=== PATIENT | male | born 1960 | race Caucasian/White ===

== ENCOUNTER 2022-05-07 10:11 | Inpatient (IN) | payer OTHER ==
[~2022-05-07] VITALS: Ht 185.4 cm; Wt 83.9 kg
--- NOTE | 2022-05-07 10:11 | NUR ---
TO ER BED 11. BIB RA [address] AND [employer], PT WAS TAKEN INTO CUSTODY 3DAYS AGO AND STARTED TO HAVE ALCOHOL IWTHDRAWAL SYMPTOMS, PT STATED HE HAS 10-15 BEERS A DAY. 2MG OF ATIVAN IM GIVEN PRIOR TO ARRIVAL, ATTACHED TO MONITOR, HEART RATE ELEVATED, MD CRAIN. AWAITING MD GONSALES.
--- NOTE | 2022-05-07 10:55 | NUR ---
IV LINE ESTABLISHED ON LAC #20, BLOOD DRAWN AND SENT TO LAB
[2022-05-07] MEDS ORDERED: LORAZEPAM INJ 2 MG/ML VIAL ONE ×2 (10:57→13:02)
[2022-05-07 10:58] LABS: BASOPHILS % (AUTO) 0.5 % (0.0-2.0); HEMATOCRIT 46 % (39-51); HEMOGLOBIN 15.6 g/dL (13.5-17.5); LYMPHOCYTES # (AUTO) 0.2 K/uL (0.8-4.8); LYMPHOCYTES % (AUTO) 3.6 % (20.0-44.0); MEAN CORPUSCULAR HGB CONC 34 g/dl (31.0-36.0); MEAN CORPUSCULAR VOLUME 104 fL (80-96); MONOCYTES # (AUTO) 1.1 K/uL (0.1-1.30); NEUTROPHILS % (AUTO) 78.9 % (43.0-81.0); PLATELET COUNT (AUTO) 63 K/uL (150-450); RED BLOOD CELL COUNT(AUTO) 4.39 MIL/uL (4.5-6.0); WHITE BLOOD COUNT (AUTO) 6.3 K/uL (4.3-11.0)
[2022-05-07] MEDS ORDERED: IV NS 0.9% 1,000 ML BAG IV ONE (11:00)
[2022-05-07] MEDS ORDERED: LORAZEPAM INJ 2 MG/ML VIAL IVP ONE (11:00)
[2022-05-07 11:13] LABS: CALCIUM, SERUM 8.8 mg/dL (8.5-10.1); CREATININE 0.9 mg/dL (0.6-1.3); POTASSIUM 3.9 mmol/L (3.5-5.1)
[2022-05-07 11:20] LABS: ALBUMIN 3.7 g/dL (3.4-5.0); BILIRUBIN,DIRECT 0.4 mg/dL (0.0-0.2); BILIRUBIN,TOTAL 1.1 mg/dL (0.2-1.0); TOTAL PROTEIN, SERUM 7.6 g/dL (6.4-8.2)
--- NOTE | 2022-05-07 12:43 | NUR ---
COVID TEST COLLECTED AND SENT
[2022-05-07] MEDS ORDERED: LORAZEPAM INJ 2 MG/ML VIAL IV ONE (13:00)
[2022-05-07] MEDS ORDERED: MAGNESIUM HYDROXIDE 30 ML UDC PO PRN (14:00)
[2022-05-07] MEDS ORDERED: MAG HYDROX/AL HYDROX/SIMETH 30 ML UDC PO PRN (14:00)
[2022-05-07] MEDS ORDERED: ACETAMINOPHEN 325 MG TABLET PO PRN (14:00)
[2022-05-07] MEDS ORDERED: TEMAZEPAM 15 MG CAPSULE PO PRN (14:00)
[2022-05-07] MEDS ORDERED: ONDANSETRON HCL/PF 4 MG/2 ML VIAL IVP PRN (14:00)
[2022-05-07] MEDS ORDERED: Z GUARD REMEDY 4 OZ OINT TP PRN (14:00)
--- NOTE | 2022-05-07 14:08 | NUR ---
GOING 317 TELE. ADMITTING AWARE
--- NOTE | 2022-05-07 14:40 | NUR ---
PT REPORT GIVEN TO MUNIR ZAMORA/MAGDA ZAMORA.
--- NOTE | 2022-05-07 15:20 | NUR ---
PT TRANSFERRED TO 317-1 VIA [facility] ACLS PROTOCOL. WARM HANDOFF GIVEN TO NOAH AMARAL.
--- NOTE | 2022-05-07 15:30 | NUR ---
RN OPENING PT ADMITTED TO UNIT WITH SEVERE TREMORS DUE TO ALCOHOL WITHDRAWAL. ALERT AND ORIENTED X3. PT STATES HE EXPERIENCES SEIZURES AT LEAST ONCE A WEEK, LASTING FOR 4 MONTHS. NO SOB NOTED. IV 20G IN THE LEFT AC. VITAL SIGNS TAKEN, BP 174/103 AND PULSE 140. SKIN INTACT. PT STATES HE IS EXPERIENCING PAIN IN HIS BACK. BED IN LOWEST POSITION WITH SIDE RAILS X2. CALL LIGHT WITHIN REACH. WILL CONTINUE TO MONITOR.
[2022-05-07 16:04] VITALS: BP 174/103
[2022-05-07 16:26] LABS: BAND % (MANUAL) 1 % (0.0-5.0); LYMPHOCYTES % (MANUAL) 13 % (16-48); MONOCYTES % (MANUAL) 8 % (0-11.0); NEUTROPHILS % (MANUAL) 78 (42-76)
[2022-05-07] MEDS: IV NS 0.9% 1,000 ML IV PRN (16:45)
[2022-05-07] MEDS: LORAZEPAM INJ 2 MG/ML VIAL IV PRN (17:11)
--- NOTE | 2022-05-07 17:54 | NUR ---
RN NOTE PT GIVEN ATIVAN, TREMORS ARE MORE UNDER CONTROL. PT STATES HE FEELS LESS ANXIOUS. IV INFUSING AT 75ML/HR OF NS. PT RESTING COMFORTABLY.
--- NOTE | 2022-05-07 18:41 | NUR ---
RN CLOSING NOTE 217 PATIENT ALERT AND ORIENTED X3. NO SOB NOTED. IV 20 G IN LEFT AC INFUSING 75ML/HR OF NORMAL SALINE. PATIENT IS ON TELE READING SINUS TACHY AT 140 BPM. TREMORS HAVE DECREASED AND PATIENT SEEMS LESS ANXIOUS. PATIENT STATES HE FEELS VERY WEAK. RESTING COMFORTABLY IN BED. PATIENT IS UNDER CUSTODY OF TWO [employer] OFFICERS WHO ARE SITTING OUTSIDE THE DOOR. CALL LIGHT IS WITHIN REACH, BED IN LOWEST POSITION, IN SEMI WATTS. SIDE RAILS UP X2. WILL ENDORSE TO GOLF CADDY NURSE FOR CONTINUITY OF CARE.
--- NOTE | 2022-05-07 19:30 | NUR ---
MS RN OPENING NOTE RECEIVED PT AWAKE IN BED. 2 [employer] OFFICERS AT BEDSIDE. A/O X4 AND ABLE TO MAKE NEEDS KNOWN. PT STABLE ON ROOM AIR. NO SOB OR S/S OF RESPIRATORY DISTRESS. BREATHING EVEN AND UNLABORED. IV ACCESS LAC 20 GAUGE RUNNING NS @ 75 ML/HR. SAFETY PRECAUTIONS IN PLACE. BED IN LOWEST LOCKED POSITION, HOB ELEVATED, SIDE RAILS UP X3, AND CALL LIGHT AND TABLE WITHIN REACH. ALL NEEDS MET AT THIS TIME.
[2022-05-07 20:00] VITALS: BP 135/92
[2022-05-08] MEDS: LORAZEPAM INJ 2 MG/ML VIAL IV PRN ×4 (00:39→20:00)
--- NOTE | 2022-05-08 00:40 | NUR ---
RN NOTE PT NOTED WITH TREMORS AND REQUESTING ATIVAN. ADMINISTERED ATIVAN 1 MG FOR ANXIETY ORDERED. ALL NEEDS MET AT THIS TIME.
--- NOTE | 2022-05-08 06:32 | NUR ---
RN NOTE PT NOTED WITH TREMORS AND REQUESTING ATIVAN. ADMINISTERED ATIVAN 1 MG FOR ANXIETY ORDERED. ALL NEEDS MET AT THIS TIME.
[2022-05-08 06:44] LABS: BASOPHILS % (AUTO) 0.2 % (0.0-2.0); EOSINOPHILS % (AUTO) 0.3 % (0.0-6.0); HEMATOCRIT 43 % (39-51); HEMOGLOBIN 15.1 g/dL (13.5-17.5); LYMPHOCYTES # (AUTO) 0.4 K/uL (0.8-4.8); LYMPHOCYTES % (AUTO) 6.7 % (20.0-44.0); MEAN CORPUSCULAR HGB CONC 35 g/dl (31.0-36.0); MEAN CORPUSCULAR VOLUME 104 fL (80-96); MONOCYTES # (AUTO) 0.9 K/uL (0.1-1.30); MONOCYTES % (AUTO) 14.7 % (2.0-12.0); NEUTROPHILS # (AUTO) 4.6 K/uL (1.8-8.9); NEUTROPHILS % (AUTO) 78.1 % (43.0-81.0); RED BLOOD CELL COUNT(AUTO) 4.18 MIL/uL (4.5-6.0); WHITE BLOOD COUNT (AUTO) 5.8 K/uL (4.3-11.0)
[2022-05-08 06:49] LABS: PLATELET COUNT (AUTO) 48 K/uL (150-450)
--- NOTE | 2022-05-08 06:55 | NUR ---
MS RN CLOSING NOTE PT AWAKE IN BED. 2 [employer] OFFICERS AT BEDSIDE. A/O X4 AND ABLE TO MAKE NEEDS KNOWN. PT STABLE ON ROOM AIR. NO SOB OR S/S OF RESPIRATORY DISTRESS. BREATHING EVEN AND UNLABORED. IV ACCESS LAC 20 GAUGE RUNNING NS @ 75 ML/HR. ALL DUE MEDS GIVEN ORDERED. SAFETY PRECAUTIONS IN PLACE AT ALL TIMES. BED IN LOWEST LOCKED POSITION, HOB ELEVATED, SIDE RAILS UP X3, AND CALL LIGHT AND TABLE WITHIN REACH. ALL NEEDS MET AT THIS TIME AND WILL ENDORSE TO ONCOMING NURSE FOR IVETTE.
[2022-05-08 07:17] LABS: THYROID STIMULATING HORMONE 1.896 uIU/mL (0.358-3.74)
[2022-05-08 07:20] LABS: CALCIUM, SERUM 8.4 mg/dL (8.5-10.1); CREATININE 0.7 mg/dL (0.6-1.3); MAGNESIUM 1.7 mg/dL (1.8-2.4); PHOSPHORUS 2.3 mg/dL (2.5-4.9); POTASSIUM 3.2 mmol/L (3.5-5.1)
--- NOTE | 2022-05-08 07:30 | NUR ---
MS RN OPENING NOTE RECEIVED PT AWAKE ON BED WITH 2 [employer] OFFICERS AT BEDSIDE. A/O X4 AND ABLE TO MAKE NEEDS KNOWN. ON ROOM AIR TOLERATING WELL. NO SOB OR S/S OF RESPIRATORY DISTRESS. BREATHING EVEN AND UNLABORED. WITH IV ACCESS AT LAC G20 WITH NS @ 75 ML/HR. SAFETY PRECAUTIONS IN PLACE. BED IN LOWEST LOCKED POSITION, HOB ELEVATED, SIDE RAILS UP X3, AND CALL LIGHT AND TABLE WITHIN REACH. WILL CONTINUE TO MONITOR.
[2022-05-08 08:00] VITALS: BP 135/90
[2022-05-08 08:10] LABS: EOSINOPHILS % (MANUAL) 1 % (0-4); LYMPHOCYTES % (MANUAL) 8 % (16-48); MONOCYTES % (MANUAL) 11 % (0-11.0); NEUTROPHILS % (MANUAL) 80 (42-76)
[2022-05-08] MEDS: IV NS 0.9% 1,000 ML IV PRN (08:10)
[2022-05-08] MEDS: THIAMINE HCL 100 MG TABLET PO SCH (08:10)
[2022-05-08] MEDS: PANTOPRAZOLE 40 MG TABLET.DR PO SCH (08:10)
[2022-05-08] MEDS ORDERED: POTASSIUM CHLORIDE 20 MEQ TAB.PRT.SR PO ONE (10:00)
[2022-05-08] MEDS ORDERED: MAGNESIUM OXIDE 400 MG TABLET PO ONE (10:00)
[2022-05-08] MEDS: POTASSIUM PHOSPHATE MM 7.5 MMOL in IV NS 0.9% 100 ML IV SCH ×2 (10:11→13:21)
--- NOTE | 2022-05-08 13:19 | NUR ---
OFFICER NOTIFIED ME THAT PATIENT IS RELEASED FROM CUSTODY.
--- NOTE | 2022-05-08 15:12 | NUR ---
RN NOTE GIVEN ATIVAN IV FOR PRESENCE OF TREMORS AND ANXIETY. WILL MONITOR.
[2022-05-08 16:00] VITALS: BP 146/101
--- NOTE | 2022-05-08 18:16 | NUR ---
MS RN CLOSING NOTES PT AWAKE ON BED, WATCHING TV, A/O X4 AND ABLE TO MAKE NEEDS KNOWN. ON ROOM AIR TOLERATING WELL. NO SOB OR S/S OF RESPIRATORY DISTRESS. BREATHING EVEN AND UNLABORED. WITH IV ACCESS AT RIGHT FOREARM G22 WITH NS @ 75 ML/HR. DUE MEDS GIVEN. SAFETY PRECAUTIONS IN PLACE. BED IN LOWEST LOCKED POSITION, HOB ELEVATED, SIDE RAILS UP X3, AND CALL LIGHT AND TABLE WITHIN REACH. WILL ENDORSE TO NEXT SHIFT FOR IVETTE.
--- NOTE | 2022-05-08 19:42 | NUR ---
RN OPENING NOTES; PT RECEIVED IN BED AAOX4,MLEYSSA WELL ON RM AIR,NO SIGN SOB/DISTRESS NOTED.NO COMPLAINE OF PAIN/DISCOMFORT AT THIS TIME,IV SITE RFA 22G PATENT AND INTACT.SAFETY MEASURE INPLACE ,CALL LIGHT WITHIN REACH.
[2022-05-08 20:00] VITALS: BP 136/92
[2022-05-09] MEDS: IV NS 0.9% 1,000 ML IV PRN ×2 (04:09→18:40)
--- NOTE | 2022-05-09 06:16 | NUR ---
RN CLOSING NOTES;309 PT IN BED AAOX3,MELYSSA WELL ON RM AIR,NO SIGN SOB/DISTRESS NOTED.NO COMPLAINE OF PAIN/DISCOMFORT DURING SHIFT,DUE MEDS GIVEN ORDERED,ALL NEEDS ATTENDED RUNNING NS@75ML/HR MELYSSA WELL,IV SITE RFA 22G PATENT AND INTACT.SAFETY MEASURE INPLACE ,CALL LIGHT WITHIN REACH.WILL ENDORSED TO NEXT SHIFT.
--- NOTE | 2022-05-09 07:27 | NUR ---
MS RN OPENING NOTE RECEIVED PT AWAKE IN BED. PT IS A/O X4, ABLE TO MAKE NEEDS KNOWN. PT ON RA, TOLERATING WELL. NO SOB NOTED AT THIS TIME. NOT IN ANY SIGN OF RESPIRATORY DISTRESS. IV ACCESS IN RFA G #22 INTACT AND PATENT WITH NS INFUSING AT 75ML/HR. SAFETY MEASURES IN PLACE: BED IN LOWEST AND LOCKED POSITION, BED ALARM ON, SIDE RAILS UPX2, AND CALL LIGHT WITHIN REACH. WILL CONTINUE TO MONITOR PT.
[2022-05-09 08:00] VITALS: BP 146/98
[2022-05-09] MEDS: PANTOPRAZOLE 40 MG TABLET.DR PO SCH (08:15)
[2022-05-09] MEDS: THIAMINE HCL 100 MG TABLET PO SCH (08:15)
[2022-05-09 08:45] LABS: BASOPHILS % (AUTO) 0.5 % (0.0-2.0); EOSINOPHILS % (AUTO) 0.3 % (0.0-6.0); HEMATOCRIT 42 % (39-51); HEMOGLOBIN 14.5 g/dL (13.5-17.5); LYMPHOCYTES # (AUTO) 0.6 K/uL (0.8-4.8); LYMPHOCYTES % (AUTO) 9.1 % (20.0-44.0); MEAN CORPUSCULAR HGB CONC 34 g/dl (31.0-36.0); MEAN CORPUSCULAR VOLUME 104 fL (80-96); MONOCYTES # (AUTO) 0.8 K/uL (0.1-1.30); MONOCYTES % (AUTO) 13.1 % (2.0-12.0); NEUTROPHILS # (AUTO) 4.9 K/uL (1.8-8.9); RED BLOOD CELL COUNT(AUTO) 4.05 MIL/uL (4.5-6.0); WHITE BLOOD COUNT (AUTO) 6.3 K/uL (4.3-11.0)
[2022-05-09 08:51] LABS: PLATELET COUNT (AUTO) 50 K/uL (150-450)
--- NOTE | 2022-05-09 09:50 | NUR ---
RN NOTE FINGER PRINTING WAS DONE BY DEPUTY COLLIER. DISCHARGE INSTRUCTION WAS GIVEN TO US AND MADE FOAM DISPENSER AWARE.
[2022-05-09 10:06] LABS: CALCIUM, SERUM 8.2 mg/dL (8.5-10.1); CREATININE 0.7 mg/dL (0.6-1.3); MAGNESIUM 1.6 mg/dL (1.8-2.4); POTASSIUM 3.2 mmol/L (3.5-5.1)
[2022-05-09] MEDS: LORAZEPAM INJ 2 MG/ML VIAL IV PRN (10:14)
--- NOTE | 2022-05-09 10:14 | NUR ---
RN NOTE PT C/O OF FEELING ANXIOUS AND HAND TREMORS. ATIVAN 1MG IV GIVEN ORDERED PRN Q4HR. PARTIAL DOSE WASTED AND WAS WITNESSED BY NOAH VELA.
[2022-05-09] MEDS: POTASSIUM CHLORIDE 20 MEQ TAB.PRT.SR PO SCH ×2 (14:06→15:12)
[2022-05-09 16:00] VITALS: BP 143/95
[2022-05-09] MEDS ORDERED: K PHOS NEUTRAL 250 MG TABLET PO ONE (16:00)
--- NOTE | 2022-05-09 19:00 | NUR ---
MS RN CLOSING NOTE PT AWAKE IN BED. PT IS A/O X4, ABLE TO MAKE NEEDS KNOWN. PT ON RA, TOLERATING WELL. NO SOB NOTED AT THIS TIME. NOT IN ANY SIGN OF RESPIRATORY DISTRESS. IV ACCESS IN RFA G #22 INTACT AND PATENT WITH NS INFUSING AT 75ML/HR. ALL NEEDS ATTENDED. KEPT CLEAN AND COMFORTABLE. SAFETY MEASURES IN PLACE: BED IN LOWEST AND LOCKED POSITION, BED ALARM ON, SIDE RAILS UPX2, AND CALL LIGHT WITHIN REACH. WILL ENDORSE TO [employer] OFFICER NURSE FOR IVETTE.
--- NOTE | 2022-05-09 19:22 | NUR ---
RN OPENING NOTE PATIENT SITTING UP AT THE EDGE OF THE BED, A/O X4 AT THIS TIME, ABLE TO MAKE NEEDS KNOWN. PATIENT ON RA, TOLERATING WELL WITH NO SOB. PATIENT ABLE TO WALK WITH A WALKER. RFA 22 G PATENT AND INTACT WITH NS AT 75 ML/HR. NO TREMORS NOTED AT THIS TIME. NO PAIN AT THIS TIME, NO APPARENT DISTRESS. SAFETY MEASURES IN PLACE: BED LOCKED AND IN LOWEST POSITION, CALL LIGHT WITHIN REACH, SIDE RAILS UP. WILL MONITOR PATIENT CLOSELY.
[2022-05-09 19:35] VITALS: BP 101/59
[2022-05-09 20:00] VITALS: BP 126/101
--- NOTE | 2022-05-09 23:30 | NUR ---
RN NOTE PATIENT REQUESTS FOR IVF TO BE PAUSED AT THIS TIME SINCE HE'S GOING TO THE RESTROOM OFTEN. COMPLAINING OF DIARRHEA D/T SOMETHING HE ATE AND DRANK (MILK AND BURGER).
[2022-05-10 06:44] LABS: BASOPHILS % (AUTO) 0.6 % (0.0-2.0); EOSINOPHILS % (AUTO) 1.7 % (0.0-6.0); HEMATOCRIT 39 % (39-51); HEMOGLOBIN 13.5 g/dL (13.5-17.5); LYMPHOCYTES # (AUTO) 0.6 K/uL (0.8-4.8); LYMPHOCYTES % (AUTO) 12.3 % (20.0-44.0); MEAN CORPUSCULAR HGB CONC 35 g/dl (31.0-36.0); MEAN CORPUSCULAR VOLUME 104 fL (80-96); MONOCYTES # (AUTO) 0.7 K/uL (0.1-1.30); NEUTROPHILS # (AUTO) 3.4 K/uL (1.8-8.9); NEUTROPHILS % (AUTO) 70.4 % (43.0-81.0); PLATELET COUNT (AUTO) 53 K/uL (150-450); RED BLOOD CELL COUNT(AUTO) 3.75 MIL/uL (4.5-6.0); WHITE BLOOD COUNT (AUTO) 4.9 K/uL (4.3-11.0)
[2022-05-10] MEDS: LORAZEPAM INJ 2 MG/ML VIAL IV PRN (06:53)
--- NOTE | 2022-05-10 06:59 | NUR ---
RN CLOSING NOTE PATIENT SITTING ON THE BED, A/O X 4 AT THIS TIME, ABLE TO MAKE NEEDS KNOWN. PATIENT ON RA, TOLERATING WELL WITH NO SOB. PATIENT GIVEN ATIVAN FOR HIS TREMORS AT 0653. RFA 22 G PATENT AND INTACT WITH NS AT 75 ML/HR. NO PAIN AT THIS TIME, NO APPARENT DISTRESS. PATIENT'S DIARRHEA RESOLVED. SAFETY MEASURES IN PLACE: BED LOCKED AND IN LOWEST POSITION, CALL LIGHT WITHIN REACH, SIDE RAILS UP. ALL NEEDS MET AND ATTENDED. ALL ORDERS CARRIED OUT. WILL ENDORSE TO DAY SHIFT NURSE FOR IVETTE.
[2022-05-10 07:00] LABS: CALCIUM, SERUM 8.2 mg/dL (8.5-10.1); CREATININE 0.7 mg/dL (0.6-1.3); MAGNESIUM 1.6 mg/dL (1.8-2.4); PHOSPHORUS 3.8 mg/dL (2.5-4.9); POTASSIUM 3.2 mmol/L (3.5-5.1)
[2022-05-10] MEDS ORDERED: MAGNESIUM OXIDE 400 MG TABLET PO ONE (08:00)
[2022-05-10] MEDS ORDERED: POTASSIUM CHLORIDE 20 MEQ TAB.PRT.SR PO ONE (08:00)
[2022-05-10] MEDS: THIAMINE HCL 100 MG TABLET PO SCH (08:46)
[2022-05-10] MEDS: PANTOPRAZOLE 40 MG TABLET.DR PO SCH (08:46)
[2022-05-10 09:02] LABS: BAND % (MANUAL) 1 % (0.0-5.0); BASOPHILS % (MANUAL) 2 % (0.0-2.0); EOSINOPHILS % (MANUAL) 1 % (0-4); LYMPHOCYTES % (MANUAL) 15 % (16-48); MONOCYTES % (MANUAL) 7 % (0-11.0); NEUTROPHILS % (MANUAL) 74 (42-76)
[2022-05-10] MEDS ORDERED: FOLI0.4T6 PO (09:10)
[2022-05-10] MEDS ORDERED: THIA100T70 PO (09:10)
--- NOTE | 2022-05-10 12:45 | NUR ---
REBEAMER CLOSING NOTE PATIENT RECEIVED AWAKE AND A/O X4. NO ACUTE DISTRESS OR C/O MEADE OBSERVED OR REPORTED. OBSERVED AMBULATING ON UNIT WITH ASSIST OF FWW AND ACCOMPANIED BY PT. TOLERATED ALL MEDICATIONS AND MEALS WELL. PATIENT DISCHARGED FROM FACILITY & BACK TO [facility] @ 1245 [facility]IA [employer]. TAKEN OFF FLOOR IN WHEELCHAIR. INVENTORY LIST SIGNED BY PATIENT AND ALL BELONGINGS GIVEN TO [employer] OFFICERS. CHARGE NURSE AWARE.
== END 2022-05-10 13:00 | DRG 897 ==
LOC: ER 10:14 → TELE 14:26 → MED 21:13
PROVIDERS: ADMIT Nurse Practitioner Acute Care; ATTEND Internal Medicine
DX: F10.239 Alcohol dependence with withdrawal, unspecified (principal); E87.1 Hypo-osmolality and hyponatremia; Y90.2 Blood alcohol level of 40-59 mg/100 ml; E86.1 Hypovolemia; Z79.899 Other long term (current) drug therapy; Z86.69 Personal history of other diseases of the nervous system and sense organs; R74.01 Elevation of levels of liver transaminase levels; Z99.89 Dependence on other enabling machines and devices; F32.9 Major depressive disorder, single episode, unspecified
CPT/HCPCS: 36415; 80048-TC; 80076-TC; 82962-TC; 83735-TC; 84100-TC; 84443-TC; 85025-TC; 87081-TC; 97116-TC; 97530-TC; C9803; G0378; G0480; J2060; J3490; J7030; J7050

== ENCOUNTER 2024-07-19 16:34 | Emergency (ER) | payer OTHER ==
[~2024-07-19] VITALS: Ht 185.4 cm; Wt 84.8 kg
[~2024-07-19 16:34] MED LIST: FOLI0.4T6 PO; THIA100T70 PO
[2024-07-19] MEDS ORDERED: ACETAMINOPHEN ES 500 MG TABLET ONE (16:54)
[2024-07-19] MEDS ORDERED: TDAP [DIPH/PERTUSSIS/TET] 0.5 ML VIAL IM ONE (16:55)
[2024-07-19] MEDS: ACETAMINOPHEN 325 MG TABLET PO ONE (17:01)
[2024-07-19] MEDS: TDAP [DIPH/PERTUSSIS/TET] 0.5 ML VIAL IM ONE (17:02)
[2024-07-19] MEDS ORDERED: ACET-2030 PO (18:45)
[2024-07-19] MEDS ORDERED: AMOX-430 PO (18:45)
[2024-07-19 22:23] VITALS: BP 126/88; TEMP 98.9; O2SAT 98
== END 2024-07-19 20:30 | disposition home or self-care (01) ==
LOC: ER 17:06
DX: S02.2XXA Fracture of nasal bones, initial encounter for closed fracture (principal); S00.03XA Contusion of scalp, initial encounter; F10.129 Alcohol abuse with intoxication, unspecified; Z86.69 Personal history of other diseases of the nervous system and sense organs; Z60.2 Problems related to living alone; Y04.0XXA Assault by unarmed brawl or fight, initial encounter; Y93.89 Activity, other specified; Y92.59 Other trade areas as the place of occurrence of the external cause; Y99.8 Other external cause status
CPT/HCPCS: 99285; 70450; 90471; 90715; 70486; A6403